=== PATIENT | female | born 1930 | race Caucasian/White ===

== ENCOUNTER 2017-06-10 06:29 | Inpatient (IN) | payer MEDICARE, OTHER ==
[~2017-06-10] VITALS: Ht 165.1 cm; Wt 76.4 kg
[~2017-06-10 06:29] MED LIST: AMIO200T57 PO; AMLO2.5T2 PO; APIX2.5T PO; CLON-529 PO; ENOX40SY7 SUBCUT; FERR134T2 PO; MULT-785 PO; NITR0.4T PO; PRAV80TA3 PO; SYN0.088T PO; UBID200C37 PO; rocuronium 10mg/ml inj IV ONE
[2017-06-10 07:36] LABS: BASOPHILS % (AUTO) 0 % (0-1); EOSINOPHILS # (AUTO) 0.1 X10'3 (0-0.9); EOSINOPHILS % (AUTO) 1.7 % (0-6); HEMATOCRIT 25.3 % (35.0-45.0); HEMOGLOBIN 8.4 g/dl (12.0-16.0); LYMPHOCYTES # (AUTO) 0.7 X10'3 (1.1-4.8); LYMPHOCYTES % (AUTO) 9.5 % (21-51); MEAN CORPUSCULAR HEMOGLOBIN 32.3 PG (27.0-31.0); MEAN CORPUSCULAR HGB CONC 33.1 % (33.0-36.5); MEAN CORPUSCULAR VOLUME 97.4 FL (78-98); MEAN PLATELET VOLUME 7.2 FL (7.4-10.4); MONOCYTES # (AUTO) 0.8 X10'3 (0-0.9); MONOCYTES % (AUTO) 9.9 % (2-12); NEUTROPHILS # (AUTO) 6.2 X10'3 (1.8-7.7); NEUTROPHILS % (AUTO) 78.9 % (42-75); PLATELET COUNT 251 X10'3 (140-440); RED BLOOD COUNT 2.59 X10'6 (4.20-5.60); RED CELL DISTRIBUTION WIDTH 15.3 % (11.5-14.5); WHITE BLOOD COUNT 7.8 X10'3 (4.5-11.0)
[2017-06-10 07:59] LABS: ALANINE AMINOTRANSFERASE 25 U/L (12-78); ALBUMIN 3.1 G/DL (3.4-5.0); ALBUMIN/GLOBULIN RATIO 0.8 (1.1-1.5); ALKALINE PHOSPHATASE 77 IU/L (46-116); ANION GAP 3 (8-16); ASPARTATE AMINO TRANSFERASE 15 U/L (10-37); BILIRUBIN,TOTAL 0.5 MG/DL (0.1-1.0); BLOOD UREA NITROGEN 25 MG/DL (7-18); BUN/CREATININE RATIO 25.8 (6.6-38.0); CALCIUM 8.8 MG/DL (8.5-10.1); CHLORIDE 104 MMOL/L (99-107); CREATININE 0.97 MG/DL (0.40-0.90); GLUCOSE 105 MG/DL (70-104); POTASSIUM 4.5 MMOL/L (3.5-5.1); SODIUM 147 MMOL/L (135-145); TOTAL PROTEIN 6.8 G/DL (6.4-8.2); eGFR 54 ML/MIN
[2017-06-10 08:00] LABS: TOTAL CARBON DIOXIDE 40.3 MMOL/L (24-32)
[2017-06-10 08:11] LABS: ABG BASE EXCESS 11.7 mmol/L (-2.0-3.0); ABG HCO3 39.8 mmol/L (22.0-26.0); ABG OXYGEN SATURATION 59.4 % (95-98); ABG PCO2 (T) 81.7 mmHg (32.0-45.0); ABG PH (T) 7.305 (7.350-7.450); ABG PO2 (T) 32.4 mmHg (83-108); ALLEN'S TEST Positive; FCOHb 1.4 % (0.5-1.5); FLOW 4 L/min; FO2Hb 58.6 % (94-100); RESPIRATORY RATE 18 b/min; TOTAL HEMOGLOBIN 7.8 G/dl (12.0-16.0)
[2017-06-10] MEDS ORDERED: aspirin 300mg supp.rect RC ONE (09:00)
[2017-06-10] MEDS ORDERED: heparin 10,000 units/1 ML INJ IV ONE ×2 (09:00→09:30)
[2017-06-10 09:20] LABS: ABG HCO3 42.8 mmol/L (22.0-26.0); ABG OXYGEN SATURATION 98.4 % (95-98); ABG PCO2 (T) 91.4 mmHg (32.0-45.0); ABG PH (T) 7.288 (7.350-7.450); ABG PO2 (T) 141.5 mmHg (83-108); ALLEN'S TEST Positive; FCOHb 1.3 % (0.5-1.5); FMetHb 0.3 % (0.3-1.12); FO2Hb 96.8 % (94-100); MINUTE VOLUME 12 L/min; RESPIRATORY RATE 18 b/min; RESPIRATORY RATE (OBSERVED) 23 b/min; TOTAL HEMOGLOBIN 8.1 G/dl (12.0-16.0)
[2017-06-10] MEDS ORDERED: rocuronium 10mg/ml inj IV ONE (09:25)
[2017-06-10] MEDS ORDERED: etomidate 2mg/ml inj. IV ONE (09:25)
[2017-06-10] MEDS ORDERED: propofol 1000mg/100ml bottle 100 ML IV ONE (09:25)
[2017-06-10] MEDS ORDERED: fentaNYL/PF 50MCG/1 ML 2ML syringe IV ONE (09:25)
[2017-06-10] MEDS ORDERED: MIDAZolam 5mg/ml 2ml vial IV ONE (09:25)
[2017-06-10 10:30] LABS: ABG BASE EXCESS 14.4 mmol/L (-2.0-3.0); ABG HCO3 42.3 mmol/L (22.0-26.0); ABG OXYGEN SATURATION 92.4 % (95-98); ABG PH (T) 7.341 (7.350-7.450); ABG PO2 (T) 65.4 mmHg (83-108); ALLEN'S TEST Positive; FMetHb 0.3 % (0.3-1.12); FO2Hb 91.2 % (94-100); MINUTE VOLUME 9 L/min; RESPIRATORY RATE 22 b/min; RESPIRATORY RATE (OBSERVED) 23 b/min; TOTAL HEMOGLOBIN 8.5 G/dl (12.0-16.0)
[2017-06-10 11:11] LABS: ABG BASE EXCESS 12.8 mmol/L (-2.0-3.0); ABG HCO3 40.1 mmol/L (22.0-26.0); ABG OXYGEN SATURATION 92.7 % (95-98); ABG PCO2 (T) 74.2 mmHg (32.0-45.0); ABG PH (T) 7.351 (7.350-7.450); ABG PO2 (T) 66.5 mmHg (83-108); ALLEN'S TEST Positive; FCOHb 1.1 % (0.5-1.5); FMetHb 0.3 % (0.3-1.12); FO2Hb 91.4 % (94-100); MINUTE VOLUME 10 L/min; RESPIRATORY RATE 25 b/min; RESPIRATORY RATE (OBSERVED) 25 b/min
[2017-06-10 12:27] LABS: PARTIAL THROMBOPLASTIN TIME 36 SECONDS (22-32); PROTHROMBIN TIME 10.2 SECONDS (9.0-12.0)
[2017-06-10 12:51] LABS: ABG OXYGEN SATURATION 96.8 % (95-98); ABG PCO2 (T) 69.9 mmHg (32.0-45.0); ABG PH (T) 7.375 (7.350-7.450); ABG PO2 (T) 93.4 mmHg (83-108); ALLEN'S TEST Positive; FCOHb 1.3 % (0.5-1.5); FMetHb 0.3 % (0.3-1.12); FO2Hb 95.3 % (94-100); MINUTE VOLUME 12 L/min; RESPIRATORY RATE 25 b/min; RESPIRATORY RATE (OBSERVED) 29 b/min
[2017-06-10] MEDS ORDERED: dextrose 5%-1/2 normal saline 1,000 ML IV SCH (14:07)
[2017-06-10] MEDS ORDERED: mag hydrox/Alum hydrox/simeth 30ml oral suspension PO PRN (14:10)
[2017-06-10] MEDS ORDERED: acetaminophen 325mg tablet PO PRN (14:10)
[2017-06-10] MEDS ORDERED: morphine 2 MG/ML inj. syringe IV PRN (14:10)
[2017-06-10] MEDS ORDERED: enoxaparin 100mg/ml syringe SUBCUT ONE (15:10)
[2017-06-10] MEDS: hydrALAZINE 20mg/ml inj. IV PRN (18:07)
[2017-06-10 19:00] VITALS: BP 182/52
[2017-06-10] MEDS: ipratropium 0.5 MG/2.5ML nebule IH SCH ×3 (19:19→23:00)
[2017-06-10] MEDS: ondansetron/PF 4mg/2ml inj IV PRN (19:53)
[2017-06-10] MEDS: morphine 2 MG/ML inj. syringe IV PRN (19:58)
[2017-06-10] MEDS ORDERED: enoxaparin 100mg/ml syringe SUBCUT SCH (20:00)
[2017-06-10] MEDS ORDERED: apixaban 2.5mg tablet PO SCH (20:00)
[2017-06-10 20:13] LABS: ALANINE AMINOTRANSFERASE 25 U/L (12-78); ALBUMIN 2.8 G/DL (3.4-5.0); ALBUMIN/GLOBULIN RATIO 0.8 (1.1-1.5); ALKALINE PHOSPHATASE 75 IU/L (46-116); ASPARTATE AMINO TRANSFERASE 18 U/L (10-37); BILIRUBIN,DIRECT 0.1 MG/DL (0-0.3); BILIRUBIN,TOTAL 0.6 MG/DL (0.1-1.0); TOTAL PROTEIN 6.3 G/DL (6.4-8.2)
[2017-06-10 21:00] VITALS: BP 136/40
[2017-06-10 21:05] LABS: ABG BASE EXCESS 11.8 mmol/L (-2.0-3.0); ABG HCO3 38.5 mmol/L (22.0-26.0); ABG OXYGEN SATURATION 92.3 % (95-98); ABG PCO2 (T) 67.9 mmHg (32.0-45.0); ABG PH (T) 7.371 (7.350-7.450); ABG PO2 (T) 66.3 mmHg (83-108); ALLEN'S TEST Positive; FCOHb 0.5 % (0.5-1.5); FMetHb 0.3 % (0.3-1.12); FO2Hb 91.6 % (94-100); MINUTE VOLUME 12 L/min; PATIENT TEMPERATURE 36.9; RESPIRATORY RATE 25 b/min; RESPIRATORY RATE (OBSERVED) 28 b/min; TIDAL VOLUME 435 mL; TOTAL HEMOGLOBIN 7.6 G/dl (12.0-16.0)
[2017-06-10 23:00] VITALS: BP 158/49
[2017-06-10] MEDS: clindamycin phosphate inj 300 MG in dextrose 5%-water 50ml 48 ML IV SCH (23:32)
[2017-06-11] VITALS (14 sets, daily range): BP systolic 91–166; BP diastolic 39–82
[2017-06-11] MEDS: ipratropium 0.5 MG/2.5ML nebule IH SCH ×6 (03:02→23:16)
[2017-06-11] MEDS: clindamycin phosphate inj 300 MG in dextrose 5%-water 50ml 48 ML IV SCH ×4 (03:15→19:43)
[2017-06-11] MEDS: hydrALAZINE 20mg/ml inj. IV PRN ×2 (03:45→09:26)
[2017-06-11] MEDS: ondansetron/PF 4mg/2ml inj IV PRN ×2 (03:45→19:42)
[2017-06-11] MEDS: morphine 2 MG/ML inj. syringe IV PRN ×3 (03:46→19:42)
[2017-06-11 06:33] LABS: BASOPHILS % (AUTO) 0.2 % (0-1); EOSINOPHILS # (AUTO) 0.1 X10'3 (0-0.9); EOSINOPHILS % (AUTO) 1.1 % (0-6); HEMATOCRIT 24.1 % (35.0-45.0); LYMPHOCYTES # (AUTO) 0.6 X10'3 (1.1-4.8); LYMPHOCYTES % (AUTO) 11.4 % (21-51); MEAN CORPUSCULAR HEMOGLOBIN 32.6 PG (27.0-31.0); MEAN CORPUSCULAR HGB CONC 33.3 % (33.0-36.5); MEAN CORPUSCULAR VOLUME 97.9 FL (78-98); MEAN PLATELET VOLUME 7.4 FL (7.4-10.4); MONOCYTES # (AUTO) 0.6 X10'3 (0-0.9); MONOCYTES % (AUTO) 10.5 % (2-12); NEUTROPHILS # (AUTO) 4.2 X10'3 (1.8-7.7); NEUTROPHILS % (AUTO) 76.8 % (42-75); PLATELET COUNT 252 X10'3 (140-440); RED BLOOD COUNT 2.46 X10'6 (4.20-5.60); RED CELL DISTRIBUTION WIDTH 15.4 % (11.5-14.5); WHITE BLOOD COUNT 5.5 X10'3 (4.5-11.0)
[2017-06-11 06:54] LABS: ALBUMIN 2.7 G/DL (3.4-5.0); ANION GAP 3 (8-16); BLOOD UREA NITROGEN 23 MG/DL (7-18); CALCIUM 8.5 MG/DL (8.5-10.1); CHLORIDE 103 MMOL/L (99-107); CREATININE 0.96 MG/DL (0.40-0.90); GLUCOSE 93 MG/DL (70-104); POTASSIUM 4.6 MMOL/L (3.5-5.1); SODIUM 147 MMOL/L (135-145); eGFR 55 ML/MIN
[2017-06-11] MEDS ORDERED: acetaZOLAMIDE IV 500mg inj IV ONE (07:35)
[2017-06-11] MEDS ORDERED: amiodarone 200mg tablet PO SCH (08:00)
[2017-06-11] MEDS ORDERED: non-formulary drug (Ubidecarenone (Co Q10) 200 MG) PO SCH (08:00)
[2017-06-11] MEDS ORDERED: levoTHYROXINE 88mcg tablet PO SCH (08:00)
[2017-06-11] MEDS: levoTHYROXINE sod inj. 100mcg/5 ml vial IV SCH (09:10)
[2017-06-11] MEDS: cloNIDine 0.1 mg tablet PO SCH (09:11)
[2017-06-11] MEDS: atorvastatin 20mg tablet PO SCH (09:11)
[2017-06-11] MEDS: multivitamins, therapeutics tablet PO SCH (09:11)
[2017-06-11] MEDS: enoxaparin 30mg/0.3ml syringe SUBCUT SCH ×2 (09:12→19:44)
[2017-06-11] MEDS: enoxaparin 40mg/0.4ml syringe SUBCUT SCH ×2 (09:22→19:44)
[2017-06-11 10:51] LABS: ABG BASE EXCESS 15.4 mmol/L (-2.0-3.0); ABG HCO3 43.3 mmol/L (22.0-26.0); ABG OXYGEN SATURATION 93.2 % (95-98); ABG PCO2 (T) 81.1 mmHg (32.0-45.0); ABG PH (T) 7.345 (7.350-7.450); ABG PO2 (T) 70.9 mmHg (83-108); ALLEN'S TEST Positive; FCOHb 0.4 % (0.5-1.5); FLOW 5 L/min; FMetHb 0.3 % (0.3-1.12); FO2Hb 92.5 % (94-100); TOTAL HEMOGLOBIN 8.1 G/dl (12.0-16.0)
[2017-06-11] MEDS: lactobacillus rhamnosus 10,000 MMU CELLS/CAPSULE PO SCH (17:30)
[2017-06-12] VITALS (7 sets, daily range): BP systolic 116–158; BP diastolic 41–83
[2017-06-12] MEDS: ondansetron/PF 4mg/2ml inj IV PRN (00:13)
[2017-06-12] MEDS: morphine 2 MG/ML inj. syringe IV PRN (00:13)
[2017-06-12] MEDS: ipratropium 0.5 MG/2.5ML nebule IH SCH ×6 (03:04→23:35)
[2017-06-12] MEDS: clindamycin phosphate inj 300 MG in dextrose 5%-water 50ml 48 ML IV SCH ×4 (03:25→20:23)
[2017-06-12] MEDS: hydrALAZINE 20mg/ml inj. IV PRN (04:12)
[2017-06-12 05:46] LABS: BASOPHILS % (AUTO) 0.4 % (0-1); EOSINOPHILS # (AUTO) 0.1 X10'3 (0-0.9); EOSINOPHILS % (AUTO) 1.2 % (0-6); HEMATOCRIT 23.6 % (35.0-45.0); HEMOGLOBIN 7.8 g/dl (12.0-16.0); LYMPHOCYTES # (AUTO) 0.7 X10'3 (1.1-4.8); LYMPHOCYTES % (AUTO) 12.7 % (21-51); MEAN CORPUSCULAR HGB CONC 32.9 % (33.0-36.5); MEAN CORPUSCULAR VOLUME 97.2 FL (78-98); MEAN PLATELET VOLUME 7.4 FL (7.4-10.4); MONOCYTES # (AUTO) 0.6 X10'3 (0-0.9); MONOCYTES % (AUTO) 11.4 % (2-12); NEUTROPHILS # (AUTO) 3.8 X10'3 (1.8-7.7); NEUTROPHILS % (AUTO) 74.3 % (42-75); PLATELET COUNT 257 X10'3 (140-440); RED BLOOD COUNT 2.43 X10'6 (4.20-5.60); RED CELL DISTRIBUTION WIDTH 15.5 % (11.5-14.5); WHITE BLOOD COUNT 5.2 X10'3 (4.5-11.0)
[2017-06-12 05:59] LABS: ALBUMIN 2.6 G/DL (3.4-5.0); ANION GAP 5 (8-16); BLOOD UREA NITROGEN 22 MG/DL (7-18); BUN/CREATININE RATIO 21.6 (6.6-38.0); CALCIUM 8.5 MG/DL (8.5-10.1); CHLORIDE 104 MMOL/L (99-107); CREATININE 1.02 MG/DL (0.40-0.90); GLUCOSE 84 MG/DL (70-104); POTASSIUM 3.9 MMOL/L (3.5-5.1); SODIUM 145 MMOL/L (135-145); TOTAL CARBON DIOXIDE 36.5 MMOL/L (24-32); eGFR 51 ML/MIN
[2017-06-12] MEDS: cloNIDine 0.1 mg tablet PO SCH (08:11)
[2017-06-12] MEDS: atorvastatin 20mg tablet PO SCH (08:11)
[2017-06-12] MEDS: enoxaparin 30mg/0.3ml syringe SUBCUT SCH ×2 (08:11→20:23)
[2017-06-12] MEDS: lactobacillus rhamnosus 10,000 MMU CELLS/CAPSULE PO SCH ×2 (08:11→17:41)
[2017-06-12] MEDS: multivitamins, therapeutics tablet PO SCH (08:11)
[2017-06-12] MEDS: methylPREDNISolone sod succ/PF 40mg inj. IV SCH ×3 (08:12→20:23)
[2017-06-12] MEDS: levoTHYROXINE sod inj. 100mcg/5 ml vial IV SCH (08:12)
[2017-06-12] MEDS: furosemide 20 MG/2 ML vial IV SCH ×2 (08:12→20:23)
[2017-06-12] MEDS: enoxaparin 40mg/0.4ml syringe SUBCUT SCH ×2 (08:12→20:22)
[2017-06-12 08:35] LABS: ABG BASE EXCESS 6.2 mmol/L (-2.0-3.0); ABG HCO3 32.3 mmol/L (22.0-26.0); ABG OXYGEN SATURATION 93.2 % (95-98); ABG PCO2 (T) 56.5 mmHg (32.0-45.0); ABG PH (T) 7.375 (7.350-7.450); ABG PO2 (T) 69.1 mmHg (83-108); ALLEN'S TEST Positive; FCOHb 0.6 % (0.5-1.5); FMetHb 0.3 % (0.3-1.12); FO2Hb 92.4 % (94-100); RESPIRATORY RATE 25 b/min; TOTAL HEMOGLOBIN 8.5 G/dl (12.0-16.0)
[2017-06-12] MEDS ORDERED: pantoprazole 40 MG vial IV SCH (20:00)
[2017-06-13] MEDS: methylPREDNISolone sod succ/PF 40mg inj. IV SCH ×4 (01:49→20:00)
[2017-06-13] MEDS: clindamycin phosphate inj 300 MG in dextrose 5%-water 50ml 48 ML IV SCH ×4 (01:49→21:29)
[2017-06-13 03:00] VITALS: BP 158/47
[2017-06-13] MEDS: ipratropium 0.5 MG/2.5ML nebule IH SCH ×6 (03:09→23:18)
[2017-06-13 05:53] LABS: BASOPHILS % (AUTO) 0 % (0-1); EOSINOPHILS # (AUTO) 0.1 X10'3 (0-0.9); HEMATOCRIT 22.8 % (35.0-45.0); HEMOGLOBIN 7.7 g/dl (12.0-16.0); LYMPHOCYTES # (AUTO) 0.3 X10'3 (1.1-4.8); LYMPHOCYTES % (AUTO) 3.1 % (21-51); MEAN CORPUSCULAR HEMOGLOBIN 32.3 PG (27.0-31.0); MEAN CORPUSCULAR HGB CONC 33.9 % (33.0-36.5); MEAN CORPUSCULAR VOLUME 95.3 FL (78-98); MEAN PLATELET VOLUME 7.4 FL (7.4-10.4); MONOCYTES # (AUTO) 0.2 X10'3 (0-0.9); MONOCYTES % (AUTO) 2.1 % (2-12); NEUTROPHILS % (AUTO) 93.8 % (42-75); PLATELET COUNT 266 X10'3 (140-440); RED BLOOD COUNT 2.39 X10'6 (4.20-5.60); WHITE BLOOD COUNT 8.5 X10'3 (4.5-11.0)
[2017-06-13 06:00] VITALS: BP 171/47
[2017-06-13 06:05] LABS: ALBUMIN 2.6 G/DL (3.4-5.0); ANION GAP 5 (8-16); BLOOD UREA NITROGEN 30 MG/DL (7-18); BUN/CREATININE RATIO 23.1 (6.6-38.0); CALCIUM 8.5 MG/DL (8.5-10.1); CHLORIDE 103 MMOL/L (99-107); GLUCOSE 128 MG/DL (70-104); POTASSIUM 3.9 MMOL/L (3.5-5.1); SODIUM 144 MMOL/L (135-145); TOTAL CARBON DIOXIDE 35.9 MMOL/L (24-32); eGFR 39 ML/MIN
[2017-06-13] MEDS: enoxaparin 30mg/0.3ml syringe SUBCUT SCH ×2 (07:57→20:00)
[2017-06-13] MEDS: enoxaparin 40mg/0.4ml syringe SUBCUT SCH ×2 (07:57→21:26)
[2017-06-13] MEDS: levoTHYROXINE sod inj. 100mcg/5 ml vial IV SCH (08:01)
[2017-06-13] MEDS: furosemide 20 MG/2 ML vial IV SCH (08:07)
[2017-06-13] MEDS: multivitamins, therapeutics tablet PO SCH (08:11)
[2017-06-13] MEDS: cloNIDine 0.1 mg tablet PO SCH (08:12)
[2017-06-13] MEDS: lactobacillus rhamnosus 10,000 MMU CELLS/CAPSULE PO SCH ×2 (08:12→21:25)
[2017-06-13] MEDS: pantoprazole 40mg Tablet.DR PO SCH ×2 (08:12→21:26)
[2017-06-13] MEDS: atorvastatin 20mg tablet PO SCH (08:12)
[2017-06-13 11:00] VITALS: BP 144/43
[2017-06-13 15:00] VITALS: BP 138/46
[2017-06-13] MEDS: magnesium hydroxide 30ml (MOM) UD suspension PO PRN (15:52)
[2017-06-13 19:00] VITALS: BP 168/57
[2017-06-13] MEDS ORDERED: methylPREDNISolone sod succ 125mg/2ml vial ONE (21:20)
[2017-06-13 23:00] VITALS: BP 143/49
[2017-06-14] VITALS (19 sets, daily range): BP systolic 108–183; BP diastolic 49–89
[2017-06-14] MEDS: clindamycin phosphate inj 300 MG in dextrose 5%-water 50ml 48 ML IV SCH ×4 (01:43→20:30)
[2017-06-14] MEDS: methylPREDNISolone sod succ/PF 40mg inj. IV SCH ×4 (01:43→20:30)
[2017-06-14] MEDS: ipratropium 0.5 MG/2.5ML nebule IH SCH ×6 (02:29→23:40)
[2017-06-14 05:57] LABS: BASOPHILS % (AUTO) 0 % (0-1); EOSINOPHILS # (AUTO) 0.1 X10'3 (0-0.9); HEMOGLOBIN 7.8 g/dl (12.0-16.0); LYMPHOCYTES # (AUTO) 0.4 X10'3 (1.1-4.8); LYMPHOCYTES % (AUTO) 2.6 % (21-51); MEAN CORPUSCULAR HEMOGLOBIN 32.4 PG (27.0-31.0); MEAN CORPUSCULAR HGB CONC 33.7 % (33.0-36.5); MEAN CORPUSCULAR VOLUME 96.3 FL (78-98); MEAN PLATELET VOLUME 7.8 FL (7.4-10.4); MONOCYTES # (AUTO) 0.4 X10'3 (0-0.9); NEUTROPHILS # (AUTO) 13.5 X10'3 (1.8-7.7); NEUTROPHILS % (AUTO) 93.4 % (42-75); PLATELET COUNT 260 X10'3 (140-440); RED BLOOD COUNT 2.39 X10'6 (4.20-5.60); RED CELL DISTRIBUTION WIDTH 15.5 % (11.5-14.5); WHITE BLOOD COUNT 14.4 X10'3 (4.5-11.0)
[2017-06-14 05:58] LABS: ALBUMIN 2.6 G/DL (3.4-5.0); ANION GAP 2 (8-16); BLOOD UREA NITROGEN 34 MG/DL (7-18); BUN/CREATININE RATIO 25.4 (6.6-38.0); CALCIUM 8.5 MG/DL (8.5-10.1); CHLORIDE 103 MMOL/L (99-107); CREATININE 1.34 MG/DL (0.40-0.90); GLUCOSE 142 MG/DL (70-104); POTASSIUM 4.6 MMOL/L (3.5-5.1); SODIUM 143 MMOL/L (135-145); eGFR 38 ML/MIN
[2017-06-14] MEDS: enoxaparin 40mg/0.4ml syringe SUBCUT SCH ×2 (08:34→20:31)
[2017-06-14] MEDS: enoxaparin 30mg/0.3ml syringe SUBCUT SCH ×2 (08:34→20:30)
[2017-06-14] MEDS: levoTHYROXINE sod inj. 100mcg/5 ml vial IV SCH (08:41)
[2017-06-14] MEDS: lactobacillus rhamnosus 10,000 MMU CELLS/CAPSULE PO SCH ×2 (08:44→17:04)
[2017-06-14] MEDS: multivitamins, therapeutics tablet PO SCH (08:44)
[2017-06-14] MEDS: cloNIDine 0.1 mg tablet PO SCH (08:44)
[2017-06-14] MEDS: atorvastatin 20mg tablet PO SCH (08:44)
[2017-06-14] MEDS: pantoprazole 40mg Tablet.DR PO SCH ×2 (08:45→20:30)
[2017-06-14] MEDS: hydrALAZINE 20mg/ml inj. IV PRN (16:13)
[2017-06-14] MEDS: carVEDilol 3.125mg tablet PO SCH (22:36)
[2017-06-15] VITALS (14 sets, daily range): BP systolic 128–187; BP diastolic 47–120
[2017-06-15] MEDS: methylPREDNISolone sod succ/PF 40mg inj. IV SCH ×4 (01:47→19:50)
[2017-06-15] MEDS: clindamycin phosphate inj 300 MG in dextrose 5%-water 50ml 48 ML IV SCH ×4 (01:47→19:50)
[2017-06-15] MEDS: ipratropium 0.5 MG/2.5ML nebule IH SCH ×6 (03:21→22:59)
[2017-06-15] MEDS: hydrALAZINE 20mg/ml inj. IV PRN ×2 (04:37→16:47)
[2017-06-15 05:30] LABS: BASOPHILS % (AUTO) 0 % (0-1); EOSINOPHILS # (AUTO) 0.2 X10'3 (0-0.9); EOSINOPHILS % (AUTO) 1.5 % (0-6); HEMATOCRIT 23.6 % (35.0-45.0); LYMPHOCYTES # (AUTO) 0.3 X10'3 (1.1-4.8); LYMPHOCYTES % (AUTO) 2.4 % (21-51); MEAN CORPUSCULAR HEMOGLOBIN 32.5 PG (27.0-31.0); MEAN CORPUSCULAR HGB CONC 33.8 % (33.0-36.5); MEAN PLATELET VOLUME 7.4 FL (7.4-10.4); MONOCYTES # (AUTO) 0.4 X10'3 (0-0.9); MONOCYTES % (AUTO) 3.1 % (2-12); NEUTROPHILS # (AUTO) 13.1 X10'3 (1.8-7.7); PLATELET COUNT 275 X10'3 (140-440); RED BLOOD COUNT 2.46 X10'6 (4.20-5.60); RED CELL DISTRIBUTION WIDTH 15.8 % (11.5-14.5); WHITE BLOOD COUNT 14.1 X10'3 (4.5-11.0)
[2017-06-15 05:42] LABS: ALBUMIN 2.7 G/DL (3.4-5.0); ANION GAP 0 (8-16); BLOOD UREA NITROGEN 34 MG/DL (7-18); CALCIUM 8.4 MG/DL (8.5-10.1); CHLORIDE 104 MMOL/L (99-107); CREATININE 1.26 MG/DL (0.40-0.90); GLUCOSE 130 MG/DL (70-104); POTASSIUM 4.9 MMOL/L (3.5-5.1); SODIUM 142 MMOL/L (135-145); TOTAL CARBON DIOXIDE 38.2 MMOL/L (24-32); eGFR 40 ML/MIN
[2017-06-15] MEDS: levoTHYROXINE sod inj. 100mcg/5 ml vial IV SCH (07:13)
[2017-06-15] MEDS: multivitamins, therapeutics tablet PO SCH (07:13)
[2017-06-15] MEDS: lactobacillus rhamnosus 10,000 MMU CELLS/CAPSULE PO SCH ×2 (07:13→16:46)
[2017-06-15] MEDS: cloNIDine 0.1 mg tablet PO SCH (07:13)
[2017-06-15] MEDS: atorvastatin 20mg tablet PO SCH (07:13)
[2017-06-15] MEDS: pantoprazole 40mg Tablet.DR PO SCH ×2 (07:13→19:50)
[2017-06-15] MEDS: carVEDilol 3.125mg tablet PO SCH ×2 (07:13→19:50)
[2017-06-15] MEDS: enoxaparin 30mg/0.3ml syringe SUBCUT SCH ×2 (07:14→19:50)
[2017-06-15] MEDS: enoxaparin 40mg/0.4ml syringe SUBCUT SCH ×2 (07:15→19:51)
[2017-06-15] MEDS: ondansetron/PF 4mg/2ml inj IV PRN (13:22)
[2017-06-15] MEDS ORDERED: simethicone 80mg chew tab PO PRN (16:20)
[2017-06-15 19:32] LABS: ABG BASE EXCESS 9.5 mmol/L (-2.0-3.0); ABG HCO3 36.9 mmol/L (22.0-26.0); ABG OXYGEN SATURATION 87.5 % (95-98); ABG PH (T) 7.328 (7.350-7.450); ABG PO2 (T) 59.1 mmHg (83-108); ALLEN'S TEST Positive; FCOHb 0.3 % (0.5-1.5); FLOW 6 L/min; FO2Hb 87.2 % (94-100); RESPIRATORY RATE (OBSERVED) 20 b/min; TOTAL HEMOGLOBIN 8.4 G/dl (12.0-16.0)
[2017-06-15] MEDS ORDERED: potassium Cl 20 mEq SR tablet PO PRN ×2 (19:45)
[2017-06-16] MEDS: clindamycin phosphate inj 300 MG in dextrose 5%-water 50ml 48 ML IV SCH ×4 (01:10→20:48)
[2017-06-16] MEDS: methylPREDNISolone sod succ/PF 40mg inj. IV SCH ×4 (01:10→20:48)
[2017-06-16 03:00] VITALS: BP 100/250
[2017-06-16] MEDS: ipratropium 0.5 MG/2.5ML nebule IH SCH ×4 (03:19→19:33)
[2017-06-16] MEDS: hydrALAZINE 20mg/ml inj. IV PRN ×2 (05:50→23:36)
[2017-06-16 05:59] LABS: BASOPHILS % (AUTO) 0 % (0-1); EOSINOPHILS # (AUTO) 0.1 X10'3 (0-0.9); HEMATOCRIT 22.5 % (35.0-45.0); HEMOGLOBIN 7.4 g/dl (12.0-16.0); LYMPHOCYTES # (AUTO) 0.3 X10'3 (1.1-4.8); LYMPHOCYTES % (AUTO) 2.7 % (21-51); MEAN CORPUSCULAR HEMOGLOBIN 32.1 PG (27.0-31.0); MEAN CORPUSCULAR VOLUME 97.3 FL (78-98); MEAN PLATELET VOLUME 7.5 FL (7.4-10.4); MONOCYTES # (AUTO) 0.5 X10'3 (0-0.9); MONOCYTES % (AUTO) 4.9 % (2-12); NEUTROPHILS # (AUTO) 9.7 X10'3 (1.8-7.7); NEUTROPHILS % (AUTO) 91.4 % (42-75); PLATELET COUNT 241 X10'3 (140-440); RED BLOOD COUNT 2.32 X10'6 (4.20-5.60); RED CELL DISTRIBUTION WIDTH 15.7 % (11.5-14.5); WHITE BLOOD COUNT 10.6 X10'3 (4.5-11.0)
[2017-06-16 06:30] LABS: ALBUMIN 2.5 G/DL (3.4-5.0); ANION GAP 2 (8-16); BLOOD UREA NITROGEN 38 MG/DL (7-18); CALCIUM 8.2 MG/DL (8.5-10.1); CHLORIDE 104 MMOL/L (99-107); CREATININE 1.15 MG/DL (0.40-0.90); GLUCOSE 128 MG/DL (70-104); MAGNESIUM 2.5 MG/DL (1.5-2.4); POTASSIUM 4.7 MMOL/L (3.5-5.1); SODIUM 144 MMOL/L (135-145); TOTAL CARBON DIOXIDE 38.3 MMOL/L (24-32); eGFR 45 ML/MIN
[2017-06-16 07:00] VITALS: BP 141/51
[2017-06-16] MEDS: cloNIDine 0.1 mg tablet PO SCH (07:38)
[2017-06-16] MEDS: multivitamins, therapeutics tablet PO SCH (07:38)
[2017-06-16] MEDS: atorvastatin 20mg tablet PO SCH (07:38)
[2017-06-16] MEDS: levoTHYROXINE 25mcg tablet PO SCH (07:39)
[2017-06-16] MEDS: pantoprazole 40mg Tablet.DR PO SCH ×2 (07:39→20:49)
[2017-06-16] MEDS: lactobacillus rhamnosus 10,000 MMU CELLS/CAPSULE PO SCH ×2 (07:39→17:51)
[2017-06-16] MEDS: carVEDilol 3.125mg tablet PO SCH ×2 (07:39→20:49)
[2017-06-16] MEDS: enoxaparin 30mg/0.3ml syringe SUBCUT SCH ×2 (07:40→20:50)
[2017-06-16] MEDS: enoxaparin 40mg/0.4ml syringe SUBCUT SCH ×2 (07:41→20:50)
[2017-06-16 10:03] LABS: HEMATOCRIT 24.7 % (35.0-45.0); HEMOGLOBIN 8.2 g/dl (12.0-16.0); MEAN CORPUSCULAR HGB CONC 33.1 % (33.0-36.5); MEAN CORPUSCULAR VOLUME 96.7 FL (78-98); MEAN PLATELET VOLUME 7.4 FL (7.4-10.4); PLATELET COUNT 300 X10'3 (140-440); RED BLOOD COUNT 2.55 X10'6 (4.20-5.60); RED CELL DISTRIBUTION WIDTH 15.3 % (11.5-14.5)
[2017-06-16 11:00] VITALS: BP 167/53
[2017-06-16 19:00] VITALS: BP 135/52
[2017-06-16 21:00] VITALS: BP 142/48
[2017-06-16 23:00] VITALS: BP 162/53
[2017-06-17] VITALS (11 sets, daily range): BP systolic 138–172; BP diastolic 45–107
[2017-06-17] MEDS: methylPREDNISolone sod succ/PF 40mg inj. IV SCH ×4 (02:13→21:14)
[2017-06-17] MEDS: clindamycin phosphate inj 300 MG in dextrose 5%-water 50ml 48 ML IV SCH ×2 (02:13→08:44)
[2017-06-17] MEDS: ipratropium 0.5 MG/2.5ML nebule IH SCH ×4 (02:40→20:26)
[2017-06-17] MEDS: cloNIDine 0.1 mg tablet PO SCH ×4 (03:30→19:32)
[2017-06-17 06:36] LABS: BASOPHILS % (AUTO) 0 % (0-1); EOSINOPHILS # (AUTO) 0.1 X10'3 (0-0.9); EOSINOPHILS % (AUTO) 1.4 % (0-6); HEMOGLOBIN 7.1 g/dl (12.0-16.0); LYMPHOCYTES # (AUTO) 0.3 X10'3 (1.1-4.8); LYMPHOCYTES % (AUTO) 3.1 % (21-51); MEAN CORPUSCULAR HGB CONC 33.2 % (33.0-36.5); MEAN CORPUSCULAR VOLUME 96.3 FL (78-98); MEAN PLATELET VOLUME 7.7 FL (7.4-10.4); MONOCYTES # (AUTO) 0.5 X10'3 (0-0.9); NEUTROPHILS # (AUTO) 9.4 X10'3 (1.8-7.7); NEUTROPHILS % (AUTO) 90.5 % (42-75); PLATELET COUNT 231 X10'3 (140-440); RED CELL DISTRIBUTION WIDTH 15.7 % (11.5-14.5); WHITE BLOOD COUNT 10.4 X10'3 (4.5-11.0)
[2017-06-17 06:38] LABS: ALBUMIN 2.6 G/DL (3.4-5.0); ANION GAP 4 (8-16); BLOOD UREA NITROGEN 47 MG/DL (7-18); BUN/CREATININE RATIO 36.4 (6.6-38.0); CALCIUM 8.1 MG/DL (8.5-10.1); CHLORIDE 102 MMOL/L (99-107); CREATININE 1.29 MG/DL (0.40-0.90); GLUCOSE 139 MG/DL (70-104); MAGNESIUM 2.4 MG/DL (1.5-2.4); POTASSIUM 4.5 MMOL/L (3.5-5.1); SODIUM 143 MMOL/L (135-145); TOTAL CARBON DIOXIDE 37.5 MMOL/L (24-32); eGFR 39 ML/MIN
[2017-06-17 06:47] LABS: HEMATOCRIT 21.2 % (35.0-45.0)
[2017-06-17] MEDS ORDERED: levoFLOXACIN-Levaquin 500mg/D5 100 ML IV SCH (08:00)
[2017-06-17] MEDS: multivitamins, therapeutics tablet PO SCH (08:59)
[2017-06-17] MEDS: carVEDilol 3.125mg tablet PO SCH ×2 (08:59→19:33)
[2017-06-17] MEDS: atorvastatin 20mg tablet PO SCH (08:59)
[2017-06-17] MEDS: lactobacillus rhamnosus 10,000 MMU CELLS/CAPSULE PO SCH ×2 (08:59→17:30)
[2017-06-17] MEDS: enoxaparin 30mg/0.3ml syringe SUBCUT SCH (09:00)
[2017-06-17] MEDS: pantoprazole 40mg Tablet.DR PO SCH ×2 (09:00→19:32)
[2017-06-17] MEDS: enoxaparin 40mg/0.4ml syringe SUBCUT SCH (09:00)
[2017-06-17] MEDS: levoTHYROXINE 25mcg tablet PO SCH (09:00)
[2017-06-17 13:44] LABS: BASOPHILS % (AUTO) 0 % (0-1); EOSINOPHILS # (AUTO) 0.1 X10'3 (0-0.9); EOSINOPHILS % (AUTO) 1.1 % (0-6); HEMATOCRIT 23.2 % (35.0-45.0); HEMOGLOBIN 7.7 g/dl (12.0-16.0); LYMPHOCYTES # (AUTO) 0.3 X10'3 (1.1-4.8); LYMPHOCYTES % (AUTO) 2.5 % (21-51); MEAN CORPUSCULAR HEMOGLOBIN 32.1 PG (27.0-31.0); MEAN CORPUSCULAR HGB CONC 33.3 % (33.0-36.5); MEAN CORPUSCULAR VOLUME 96.3 FL (78-98); MEAN PLATELET VOLUME 8.1 FL (7.4-10.4); MONOCYTES # (AUTO) 0.5 X10'3 (0-0.9); MONOCYTES % (AUTO) 4.7 % (2-12); NEUTROPHILS # (AUTO) 10.2 X10'3 (1.8-7.7); NEUTROPHILS % (AUTO) 91.7 % (42-75); PLATELET COUNT 273 X10'3 (140-440); RED BLOOD COUNT 2.41 X10'6 (4.20-5.60); RED CELL DISTRIBUTION WIDTH 16.3 % (11.5-14.5); WHITE BLOOD COUNT 11.1 X10'3 (4.5-11.0)
[2017-06-17 13:54] LABS: PROTHROMBIN TIME 10.5 SECONDS (9.0-12.0)
[2017-06-17] MEDS: hydrALAZINE 20mg/ml inj. IV PRN (23:19)
[2017-06-18] VITALS (20 sets, daily range): BP systolic 129–182; BP diastolic 47–121
[2017-06-18] MEDS: methylPREDNISolone sod succ/PF 40mg inj. IV SCH ×4 (01:15→21:20)
[2017-06-18] MEDS: levoFLOXACIN-Levaquin 500mg/D5 100 ML IV SCH ×2 (01:16→09:35)
[2017-06-18] MEDS: ipratropium 0.5 MG/2.5ML nebule IH SCH ×4 (02:28→22:35)
[2017-06-18] MEDS: lactobacillus rhamnosus 10,000 MMU CELLS/CAPSULE PO SCH ×2 (07:30→16:42)
[2017-06-18] MEDS ORDERED: ADD VANTAGE IV SCH (08:00)
[2017-06-18] MEDS ORDERED: VANCOMYCIN IV SCH (08:00)
[2017-06-18] MEDS: multivitamins, therapeutics tablet PO SCH (08:00)
[2017-06-18] MEDS ORDERED: NS IV SCH (08:00)
[2017-06-18] MEDS: levoTHYROXINE 25mcg tablet PO SCH (08:35)
[2017-06-18] MEDS: carVEDilol 3.125mg tablet PO SCH ×2 (08:40→21:20)
[2017-06-18] MEDS: cloNIDine 0.1 mg tablet PO SCH ×3 (08:41→21:20)
[2017-06-18] MEDS: pantoprazole 40mg Tablet.DR PO SCH ×2 (08:43→21:20)
[2017-06-18] MEDS: atorvastatin 20mg tablet PO SCH (08:43)
[2017-06-18 08:48] LABS: BASOPHILS % (AUTO) 0 % (0-1); EOSINOPHILS % (AUTO) 0 % (0-6); HEMATOCRIT 28.1 % (35.0-45.0); HEMOGLOBIN 9.4 g/dl (12.0-16.0); LYMPHOCYTES # (AUTO) 0.3 X10'3 (1.1-4.8); LYMPHOCYTES % (AUTO) 2.7 % (21-51); MEAN CORPUSCULAR HEMOGLOBIN 31.6 PG (27.0-31.0); MEAN CORPUSCULAR HGB CONC 33.3 % (33.0-36.5); MEAN CORPUSCULAR VOLUME 94.9 FL (78-98); MEAN PLATELET VOLUME 8.3 FL (7.4-10.4); MONOCYTES # (AUTO) 0.6 X10'3 (0-0.9); MONOCYTES % (AUTO) 4.8 % (2-12); NEUTROPHILS # (AUTO) 11.3 X10'3 (1.8-7.7); NEUTROPHILS % (AUTO) 92.5 % (42-75); PLATELET COUNT 275 X10'3 (140-440); RED BLOOD COUNT 2.96 X10'6 (4.20-5.60); RED CELL DISTRIBUTION WIDTH 16.8 % (11.5-14.5); WHITE BLOOD COUNT 12.2 X10'3 (4.5-11.0)
[2017-06-18 08:50] LABS: ALBUMIN 2.9 G/DL (3.4-5.0); ANION GAP 3 (8-16); BLOOD UREA NITROGEN 42 MG/DL (7-18); BUN/CREATININE RATIO 34.1 (6.6-38.0); CALCIUM 8.2 MG/DL (8.5-10.1); CHLORIDE 104 MMOL/L (99-107); CREATININE 1.23 MG/DL (0.40-0.90); GLUCOSE 124 MG/DL (70-104); MAGNESIUM 2.4 MG/DL (1.5-2.4); POTASSIUM 4.8 MMOL/L (3.5-5.1); SODIUM 144 MMOL/L (135-145); TOTAL CARBON DIOXIDE 36.6 MMOL/L (24-32); eGFR 41 ML/MIN
[2017-06-18] MEDS ORDERED: vancomycin/NS 1 GM ADD-VANTAGE 250 ML IV SCH (09:31)
[2017-06-18] MEDS: hydrALAZINE 20mg/ml inj. IV PRN (10:38)
[2017-06-18] MEDS: vancomycin/NS 1 GM ADD-VANTAGE 250 ML IV SCH (10:59)
[2017-06-19] VITALS (8 sets, daily range): BP systolic 133–171; BP diastolic 48–53
[2017-06-19] MEDS: methylPREDNISolone sod succ/PF 40mg inj. IV SCH ×4 (02:57→20:23)
[2017-06-19] MEDS: ipratropium 0.5 MG/2.5ML nebule IH SCH ×4 (03:01→20:00)
[2017-06-19] MEDS: hydrALAZINE 20mg/ml inj. IV PRN ×3 (03:15→21:38)
[2017-06-19 06:27] LABS: BASOPHILS % (AUTO) 0 % (0-1); EOSINOPHILS # (AUTO) 0.1 X10'3 (0-0.9); EOSINOPHILS % (AUTO) 1.2 % (0-6); HEMOGLOBIN 8.1 g/dl (12.0-16.0); LYMPHOCYTES # (AUTO) 0.2 X10'3 (1.1-4.8); LYMPHOCYTES % (AUTO) 2.1 % (21-51); MEAN CORPUSCULAR HGB CONC 33.8 % (33.0-36.5); MEAN CORPUSCULAR VOLUME 94.8 FL (78-98); MEAN PLATELET VOLUME 7.8 FL (7.4-10.4); MONOCYTES # (AUTO) 0.5 X10'3 (0-0.9); MONOCYTES % (AUTO) 4.8 % (2-12); NEUTROPHILS # (AUTO) 9.3 X10'3 (1.8-7.7); NEUTROPHILS % (AUTO) 91.9 % (42-75); PLATELET COUNT 229 X10'3 (140-440); RED BLOOD COUNT 2.53 X10'6 (4.20-5.60); RED CELL DISTRIBUTION WIDTH 16.6 % (11.5-14.5); WHITE BLOOD COUNT 10.1 X10'3 (4.5-11.0)
[2017-06-19 06:54] LABS: ALBUMIN 2.6 G/DL (3.4-5.0); ANION GAP 3 (8-16); BLOOD UREA NITROGEN 40 MG/DL (7-18); BUN/CREATININE RATIO 37.7 (6.6-38.0); CALCIUM 8.1 MG/DL (8.5-10.1); CHLORIDE 106 MMOL/L (99-107); CREATININE 1.06 MG/DL (0.40-0.90); GLUCOSE 134 MG/DL (70-104); MAGNESIUM 2.3 MG/DL (1.5-2.4); POTASSIUM 4.7 MMOL/L (3.5-5.1); SODIUM 145 MMOL/L (135-145); TOTAL CARBON DIOXIDE 35.6 MMOL/L (24-32); eGFR 49 ML/MIN
[2017-06-19] MEDS: levoFLOXACIN-Levaquin 250mg/D5 50 ML IV SCH (09:12)
[2017-06-19] MEDS: carVEDilol 3.125mg tablet PO SCH ×2 (09:13→20:23)
[2017-06-19] MEDS: vancomycin/NS 1 GM ADD-VANTAGE 250 ML IV SCH (09:13)
[2017-06-19] MEDS: levoTHYROXINE 25mcg tablet PO SCH (09:13)
[2017-06-19] MEDS: atorvastatin 20mg tablet PO SCH (09:13)
[2017-06-19] MEDS: cloNIDine 0.1 mg tablet PO SCH ×3 (09:14→20:23)
[2017-06-19] MEDS: lactobacillus rhamnosus 10,000 MMU CELLS/CAPSULE PO SCH ×2 (09:14→19:27)
[2017-06-19] MEDS: pantoprazole 40mg Tablet.DR PO SCH ×2 (09:14→20:23)
[2017-06-19] MEDS: multivitamins, therapeutics tablet PO SCH (09:14)
[2017-06-20] VITALS (9 sets, daily range): BP systolic 125–184; BP diastolic 48–81
[2017-06-20] MEDS ORDERED: cloNIDine 0.1 mg tablet PO ONE (00:41)
[2017-06-20] MEDS: methylPREDNISolone sod succ/PF 40mg inj. IV SCH ×4 (02:11→21:08)
[2017-06-20] MEDS: ipratropium 0.5 MG/2.5ML nebule IH SCH ×4 (03:05→20:12)
[2017-06-20] MEDS: hydrALAZINE 20mg/ml inj. IV PRN ×2 (04:34→17:14)
[2017-06-20] MEDS: multivitamins, therapeutics tablet PO SCH (07:24)
[2017-06-20] MEDS: vancomycin/NS 1 GM ADD-VANTAGE 250 ML IV SCH (07:24)
[2017-06-20] MEDS: atorvastatin 20mg tablet PO SCH (07:24)
[2017-06-20] MEDS: levoFLOXACIN-Levaquin 250mg/D5 50 ML IV SCH (07:24)
[2017-06-20] MEDS: levoTHYROXINE 25mcg tablet PO SCH (07:24)
[2017-06-20] MEDS: lactobacillus rhamnosus 10,000 MMU CELLS/CAPSULE PO SCH ×2 (07:25→17:07)
[2017-06-20] MEDS: carVEDilol 3.125mg tablet PO SCH ×2 (07:25→21:07)
[2017-06-20] MEDS: pantoprazole 40mg Tablet.DR PO SCH ×2 (07:25→21:07)
[2017-06-20] MEDS: cloNIDine 0.1 mg tablet PO SCH ×3 (07:25→21:07)
[2017-06-20 09:04] LABS: BASOPHILS % (AUTO) 0 % (0-1); EOSINOPHILS # (AUTO) 0.1 X10'3 (0-0.9); EOSINOPHILS % (AUTO) 0.7 % (0-6); HEMATOCRIT 26.8 % (35.0-45.0); HEMOGLOBIN 8.9 g/dl (12.0-16.0); LYMPHOCYTES # (AUTO) 0.2 X10'3 (1.1-4.8); MEAN CORPUSCULAR HEMOGLOBIN 31.7 PG (27.0-31.0); MEAN CORPUSCULAR HGB CONC 33.1 % (33.0-36.5); MEAN CORPUSCULAR VOLUME 95.7 FL (78-98); MEAN PLATELET VOLUME 7.7 FL (7.4-10.4); MONOCYTES # (AUTO) 0.4 X10'3 (0-0.9); MONOCYTES % (AUTO) 3.3 % (2-12); NEUTROPHILS # (AUTO) 10.7 X10'3 (1.8-7.7); PLATELET COUNT 240 X10'3 (140-440); RED BLOOD COUNT 2.81 X10'6 (4.20-5.60); RED CELL DISTRIBUTION WIDTH 16.6 % (11.5-14.5); WHITE BLOOD COUNT 11.4 X10'3 (4.5-11.0)
[2017-06-20 09:25] LABS: ALBUMIN 2.7 G/DL (3.4-5.0); ANION GAP 5 (8-16); BLOOD UREA NITROGEN 40 MG/DL (7-18); BUN/CREATININE RATIO 35.1 (6.6-38.0); CALCIUM 8.1 MG/DL (8.5-10.1); CHLORIDE 103 MMOL/L (99-107); CREATININE 1.14 MG/DL (0.40-0.90); GLUCOSE 209 MG/DL (70-104); MAGNESIUM 2.1 MG/DL (1.5-2.4); POTASSIUM 4.5 MMOL/L (3.5-5.1); SODIUM 142 MMOL/L (135-145); TOTAL CARBON DIOXIDE 34.5 MMOL/L (24-32); eGFR 45 ML/MIN
[2017-06-20] MEDS: Protein Shake (high protein) 240ml (8oz) cup PO SCH (18:35)
[2017-06-20] MEDS: magnesium hydroxide 30ml (MOM) UD suspension PO PRN (21:09)
[2017-06-20] MEDS ORDERED: cloNIDine 0.2 MG/24 HR patch (7 day patch) TD ONE (21:45)
[2017-06-21] MEDS: methylPREDNISolone sod succ/PF 40mg inj. IV SCH ×4 (02:05→19:40)
[2017-06-21] MEDS: ipratropium 0.5 MG/2.5ML nebule IH SCH ×4 (02:42→20:14)
[2017-06-21 03:00] VITALS: BP 178/64
[2017-06-21] MEDS: hydrALAZINE 20mg/ml inj. IV PRN ×3 (03:42→22:53)
[2017-06-21 05:46] LABS: BASOPHILS % (AUTO) 0 % (0-1); EOSINOPHILS # (AUTO) 0.2 X10'3 (0-0.9); EOSINOPHILS % (AUTO) 1.5 % (0-6); HEMATOCRIT 25.5 % (35.0-45.0); HEMOGLOBIN 8.4 g/dl (12.0-16.0); LYMPHOCYTES # (AUTO) 0.3 X10'3 (1.1-4.8); MEAN CORPUSCULAR HEMOGLOBIN 31.6 PG (27.0-31.0); MEAN CORPUSCULAR HGB CONC 33.1 % (33.0-36.5); MEAN CORPUSCULAR VOLUME 95.5 FL (78-98); MEAN PLATELET VOLUME 7.9 FL (7.4-10.4); MONOCYTES # (AUTO) 0.5 X10'3 (0-0.9); MONOCYTES % (AUTO) 4.1 % (2-12); NEUTROPHILS # (AUTO) 11.9 X10'3 (1.8-7.7); NEUTROPHILS % (AUTO) 92.4 % (42-75); PLATELET COUNT 223 X10'3 (140-440); RED BLOOD COUNT 2.68 X10'6 (4.20-5.60); RED CELL DISTRIBUTION WIDTH 16.1 % (11.5-14.5); WHITE BLOOD COUNT 12.8 X10'3 (4.5-11.0)
[2017-06-21 05:55] LABS: ALBUMIN 2.6 G/DL (3.4-5.0); ANION GAP 1 (8-16); BLOOD UREA NITROGEN 42 MG/DL (7-18); CHLORIDE 105 MMOL/L (99-107); CREATININE 1.05 MG/DL (0.40-0.90); GLUCOSE 149 MG/DL (70-104); MAGNESIUM 2.4 MG/DL (1.5-2.4); POTASSIUM 5.1 MMOL/L (3.5-5.1); SODIUM 140 MMOL/L (135-145); TOTAL CARBON DIOXIDE 33.7 MMOL/L (24-32); eGFR 50 ML/MIN
[2017-06-21 06:00] VITALS: BP 185/66
[2017-06-21] MEDS ORDERED: VANCOMYCIN LEVEL IV ONE (07:30)
[2017-06-21] MEDS: Protein Shake (high protein) 240ml (8oz) cup PO SCH ×3 (08:00→18:00)
[2017-06-21] MEDS: levoTHYROXINE 25mcg tablet PO SCH (09:17)
[2017-06-21] MEDS: lactobacillus rhamnosus 10,000 MMU CELLS/CAPSULE PO SCH ×2 (09:18→17:33)
[2017-06-21] MEDS: carVEDilol 3.125mg tablet PO SCH ×2 (09:19→19:39)
[2017-06-21] MEDS: atorvastatin 20mg tablet PO SCH (09:20)
[2017-06-21] MEDS: pantoprazole 40mg Tablet.DR PO SCH ×2 (09:20→19:39)
[2017-06-21] MEDS: multivitamins, therapeutics tablet PO SCH (09:20)
[2017-06-21] MEDS ORDERED: normal saline 1000ml 1,000 ML IV ONE (10:15)
[2017-06-21] MEDS ORDERED: iohexol 350MG/ML 100ml bottle IV ONE (10:40)
[2017-06-21 11:00] VITALS: BP 161/54
[2017-06-21 15:00] VITALS: BP 176/68
[2017-06-21 19:00] VITALS: BP 181/68
[2017-06-21] MEDS ORDERED: hyDRALAzine 10mg tablet PO ONE (19:30)
[2017-06-21 23:00] VITALS: BP 190/67
[2017-06-22] VITALS (9 sets, daily range): BP systolic 129–187; BP diastolic 52–68
[2017-06-22] MEDS: methylPREDNISolone sod succ/PF 40mg inj. IV SCH ×4 (01:53→21:05)
[2017-06-22] MEDS: cloNIDine 0.1 mg tablet PO SCH ×4 (02:08→21:04)
[2017-06-22] MEDS: ipratropium 0.5 MG/2.5ML nebule IH SCH ×4 (02:40→19:44)
[2017-06-22] MEDS ORDERED: cloNIDine 0.1 mg tablet PO ONE (03:25)
[2017-06-22 06:13] LABS: BASOPHILS % (AUTO) 0 % (0-1); EOSINOPHILS # (AUTO) 0.3 X10'3 (0-0.9); EOSINOPHILS % (AUTO) 2.2 % (0-6); HEMATOCRIT 24.6 % (35.0-45.0); HEMOGLOBIN 8.3 g/dl (12.0-16.0); LYMPHOCYTES # (AUTO) 0.2 X10'3 (1.1-4.8); LYMPHOCYTES % (AUTO) 1.3 % (21-51); MEAN CORPUSCULAR HEMOGLOBIN 32.3 PG (27.0-31.0); MEAN CORPUSCULAR HGB CONC 33.9 % (33.0-36.5); MEAN CORPUSCULAR VOLUME 95.3 FL (78-98); MEAN PLATELET VOLUME 7.7 FL (7.4-10.4); MONOCYTES # (AUTO) 0.6 X10'3 (0-0.9); MONOCYTES % (AUTO) 4.5 % (2-12); NEUTROPHILS # (AUTO) 12.3 X10'3 (1.8-7.7); PLATELET COUNT 230 X10'3 (140-440); RED BLOOD COUNT 2.58 X10'6 (4.20-5.60); RED CELL DISTRIBUTION WIDTH 16.3 % (11.5-14.5); WHITE BLOOD COUNT 13.3 X10'3 (4.5-11.0)
[2017-06-22 06:33] LABS: ALBUMIN 2.5 G/DL (3.4-5.0); ANION GAP 3 (8-16); BLOOD UREA NITROGEN 37 MG/DL (7-18); BUN/CREATININE RATIO 38.5 (6.6-38.0); CALCIUM 7.9 MG/DL (8.5-10.1); CHLORIDE 103 MMOL/L (99-107); CREATININE 0.96 MG/DL (0.40-0.90); GLUCOSE 139 MG/DL (70-104); MAGNESIUM 2.2 MG/DL (1.5-2.4); POTASSIUM 5.4 MMOL/L (3.5-5.1); SODIUM 139 MMOL/L (135-145); TOTAL CARBON DIOXIDE 32.8 MMOL/L (24-32); eGFR 55 ML/MIN
[2017-06-22 06:47] LABS: RHEUM FACTOR QUAL REFLEX TITER NEGATIVE (Neg)
[2017-06-22] MEDS: levoTHYROXINE 25mcg tablet PO SCH (08:09)
[2017-06-22] MEDS: lactobacillus rhamnosus 10,000 MMU CELLS/CAPSULE PO SCH ×2 (08:12→18:01)
[2017-06-22] MEDS: carVEDilol 3.125mg tablet PO SCH ×2 (08:16→21:04)
[2017-06-22] MEDS: Protein Shake (high protein) 240ml (8oz) cup PO SCH ×3 (08:17→18:03)
[2017-06-22] MEDS: pantoprazole 40mg Tablet.DR PO SCH ×2 (08:17→21:05)
[2017-06-22] MEDS: atorvastatin 20mg tablet PO SCH (08:17)
[2017-06-22] MEDS: multivitamins, therapeutics tablet PO SCH (08:17)
[2017-06-22] MEDS: hydrALAZINE 20mg/ml inj. IV PRN (23:31)
[2017-06-23 02:00] VITALS: BP 162/53
[2017-06-23] MEDS: ipratropium 0.5 MG/2.5ML nebule IH SCH ×4 (02:33→20:59)
[2017-06-23] MEDS: methylPREDNISolone sod succ/PF 40mg inj. IV SCH ×4 (02:37→21:18)
[2017-06-23 06:00] VITALS: BP 180/65
[2017-06-23] MEDS: cloNIDine 0.1 mg tablet PO SCH ×3 (07:20→21:33)
[2017-06-23] MEDS: levoTHYROXINE 25mcg tablet PO SCH (07:20)
[2017-06-23] MEDS: lactobacillus rhamnosus 10,000 MMU CELLS/CAPSULE PO SCH ×2 (07:20→17:32)
[2017-06-23] MEDS: atorvastatin 20mg tablet PO SCH (07:21)
[2017-06-23] MEDS: multivitamins, therapeutics tablet PO SCH (07:21)
[2017-06-23] MEDS: pantoprazole 40mg Tablet.DR PO SCH ×2 (07:21→21:18)
[2017-06-23] MEDS: carVEDilol 3.125mg tablet PO SCH ×2 (07:21→21:18)
[2017-06-23] MEDS: Protein Shake (high protein) 240ml (8oz) cup PO SCH ×3 (08:00→18:00)
[2017-06-23 11:00] VITALS: BP 141/58
[2017-06-23] MEDS ORDERED: sodium polystyrene sulfonate 15gm/60ml oral suspension PO ONE (12:10)
[2017-06-23 15:00] VITALS: BP 137/69
[2017-06-23 19:00] VITALS: BP 163/78
[2017-06-23 19:14] LABS: ANTI-DSDNA ANTIBODIES <1 IU/mL (0-9)
[2017-06-23 23:00] VITALS: BP 124/102
[2017-06-24] MEDS: methylPREDNISolone sod succ/PF 40mg inj. IV SCH ×2 (01:49→07:24)
[2017-06-24 02:30] VITALS: BP 211/78
[2017-06-24] MEDS: hydrALAZINE 20mg/ml inj. IV PRN (02:30)
[2017-06-24 03:00] VITALS: BP 158/69
[2017-06-24] MEDS: ipratropium 0.5 MG/2.5ML nebule IH SCH ×2 (03:52→07:55)
[2017-06-24 05:53] VITALS: BP 178/70
[2017-06-24 06:00] VITALS: BP 186/73
[2017-06-24 06:50] LABS: POTASSIUM 4.6 MMOL/L (3.5-5.1)
[2017-06-24] MEDS: atorvastatin 20mg tablet PO SCH (07:24)
[2017-06-24] MEDS: levoTHYROXINE 25mcg tablet PO SCH (07:24)
[2017-06-24] MEDS: lactobacillus rhamnosus 10,000 MMU CELLS/CAPSULE PO SCH (07:24)
[2017-06-24] MEDS: multivitamins, therapeutics tablet PO SCH (07:24)
[2017-06-24] MEDS: pantoprazole 40mg Tablet.DR PO SCH (07:24)
[2017-06-24] MEDS: cloNIDine 0.1 mg tablet PO SCH (07:24)
[2017-06-24] MEDS: carVEDilol 3.125mg tablet PO SCH (07:25)
[2017-06-24] MEDS: Protein Shake (high protein) 240ml (8oz) cup PO SCH (08:00)
[2017-06-24 08:42] LABS: BASOPHILS % (AUTO) 0 % (0-1); EOSINOPHILS % (AUTO) 0 % (0-6); HEMATOCRIT 25.8 % (35.0-45.0); HEMOGLOBIN 8.7 g/dl (12.0-16.0); LYMPHOCYTES # (AUTO) 0.2 X10'3 (1.1-4.8); LYMPHOCYTES % (AUTO) 1.3 % (21-51); MEAN CORPUSCULAR HEMOGLOBIN 32.2 PG (27.0-31.0); MEAN CORPUSCULAR HGB CONC 33.9 % (33.0-36.5); MEAN CORPUSCULAR VOLUME 95.1 FL (78-98); MEAN PLATELET VOLUME 8.1 FL (7.4-10.4); MONOCYTES # (AUTO) 0.5 X10'3 (0-0.9); MONOCYTES % (AUTO) 2.9 % (2-12); NEUTROPHILS # (AUTO) 15.9 X10'3 (1.8-7.7); NEUTROPHILS % (AUTO) 95.8 % (42-75); PLATELET COUNT 215 X10'3 (140-440); RED BLOOD COUNT 2.71 X10'6 (4.20-5.60); RED CELL DISTRIBUTION WIDTH 16.5 % (11.5-14.5); WHITE BLOOD COUNT 16.6 X10'3 (4.5-11.0)
[2017-06-24 08:50] LABS: ALBUMIN 2.7 G/DL (3.4-5.0); ANION GAP 7 (8-16); BLOOD UREA NITROGEN 42 MG/DL (7-18); BUN/CREATININE RATIO 38.5 (6.6-38.0); CHLORIDE 103 MMOL/L (99-107); CREATININE 1.09 MG/DL (0.40-0.90); GLUCOSE 133 MG/DL (70-104); SODIUM 143 MMOL/L (135-145); TOTAL CARBON DIOXIDE 33.3 MMOL/L (24-32); eGFR 48 ML/MIN
[2017-06-24 11:00] VITALS: BP 147/47
[2017-06-24 13:38] LABS: ATYPICAL PANCA <1:20 titer (Neg:<1:20); CYTOPLASMIC (C-ANCA) <1:20 titer (Neg:<1:20); PERINUCLEAR (P-ANCA) <1:20 titer (Neg:<1:20)
[2017-06-27 17:12] LABS: OCCULT BLOOD STOOL NEGATIVE (Neg)
== END 2017-06-24 13:00 | DRG 177 ==
LOC: ER 06:29 → ED HOLD 14:07 → EDBEDREQ 15:15 → PCU 3S 16:55
PROVIDERS: ADMIT Family Medicine; ATTEND Internal Medicine
PROC: 5A09457 Assistance with Respiratory Ventilation, 24-96 Consecutive Hours, Continuous Positive Airway Pressure (ICD-10-PCS; principal; 2017-06-10)
PROC: 0T9B70Z Drainage of Bladder with Drainage Device, Via Natural or Artificial Opening (ICD-10-PCS; 2017-06-10)
PROC: 30233N1 Transfusion of Nonautologous Red Blood Cells into Peripheral Vein, Percutaneous Approach (ICD-10-PCS; 2017-06-17)
PROC: B3201ZZ Computerized Tomography (CT Scan) of Thoracic Aorta using Low Osmolar Contrast (ICD-10-PCS; 2017-06-21)
DX: J69.0 Pneumonitis due to inhalation of food and vomit (principal); J96.22 Acute and chronic respiratory failure with hypercapnia; J96.21 Acute and chronic respiratory failure with hypoxia; I21.4 Non-ST elevation (NSTEMI) myocardial infarction; E87.4 Mixed disorder of acid-base balance; K57.91 Diverticulosis of intestine, part unspecified, without perforation or abscess with bleeding; N17.9 Acute kidney failure, unspecified; J44.1 Chronic obstructive pulmonary disease with (acute) exacerbation; J98.11 Atelectasis; R04.2 Hemoptysis; I69.351 Hemiplegia and hemiparesis following cerebral infarction affecting right dominant side; E66.2 Morbid (severe) obesity with alveolar hypoventilation; I48.2 Chronic atrial fibrillation; R33.9 Retention of urine, unspecified; D63.8 Anemia in other chronic diseases classified elsewhere; I27.20 Pulmonary hypertension, unspecified; E03.9 Hypothyroidism, unspecified; E78.5 Hyperlipidemia, unspecified; I11.0 Hypertensive heart disease with heart failure; I25.10 Atherosclerotic heart disease of native coronary artery without angina pectoris; I50.9 Heart failure, unspecified; I69.320 Aphasia following cerebral infarction; Z90.49 Acquired absence of other specified parts of digestive tract; Z95.0 Presence of cardiac pacemaker; Z99.81 Dependence on supplemental oxygen; Z88.1 Allergy status to other antibiotic agents; Z79.899 Other long term (current) drug therapy; Z87.891 Personal history of nicotine dependence; Z68.28 Body mass index [BMI] 28.0-28.9, adult
CPT/HCPCS: 36415; 36600; 70450; 71045; 71250; 71275; 74018; 74230; 80048; 80053; 80076; 82272; 82803; 83735; 83880; 84443; 84484; 85018; 85025; 85027; 85384; 85610; 85730; 86235; 86256; 86430; 86885; 86900; 86901; 86902; 86922; 87070; 92616; 93005; 93306; 94640; 94660; 94668; 94760; 96365; 96375; 97110; 97116; 97162; 97530; 99291; 99292; A4315; A6212; A6213; A6250; A6258; C9113; J0360; J1120; J1644; J1650; J1940; J1956; J2250; J2270; J2405; J2704; J2920; J2930; J3010; J3370; J3490; J7030; J7060; P9016; Q9967

== ENCOUNTER 2017-09-23 18:13 | Emergency (ER) | payer MEDICARE, OTHER ==
[~2017-09-23] VITALS: Ht 162.6 cm; Wt 70.0 kg
[~2017-09-23 18:13] MED LIST changes: -ENOX40SY7 SUBCUT; -rocuronium 10mg/ml inj IV ONE
[2017-09-23] MEDS ORDERED: AMLO2.5T2 PO (19:25)
[2017-09-23] MEDS ORDERED: FURO-150 PO (19:25)
[2017-09-23] MEDS ORDERED: POTA10CA44 PO (19:25)
[2017-09-23] MEDS ORDERED: SYN0.088T PO (19:25)
[2017-09-23] MEDS ORDERED: CLON-529 PO (19:25)
[2017-09-23 19:54] LABS: BASOPHILS % (AUTO) 0.1 % (0-1); EOSINOPHILS # (AUTO) 1.3 X10'3 (0-0.9); EOSINOPHILS % (AUTO) 18.1 % (0-6); HEMATOCRIT 27.7 % (35.0-45.0); HEMOGLOBIN 8.9 g/dl (12.0-16.0); LYMPHOCYTES # (AUTO) 0.8 X10'3 (1.1-4.8); LYMPHOCYTES % (AUTO) 11.4 % (21-51); MEAN CORPUSCULAR HEMOGLOBIN 30.9 PG (27.0-31.0); MEAN CORPUSCULAR HGB CONC 32.1 % (33.0-36.5); MEAN CORPUSCULAR VOLUME 96.4 FL (78-98); MEAN PLATELET VOLUME 7.1 FL (7.4-10.4); MONOCYTES # (AUTO) 0.8 X10'3 (0-0.9); MONOCYTES % (AUTO) 11.8 % (2-12); NEUTROPHILS # (AUTO) 4.1 X10'3 (1.8-7.7); NEUTROPHILS % (AUTO) 58.6 % (42-75); PLATELET COUNT 293 X10'3 (140-440); RED BLOOD COUNT 2.88 X10'6 (4.20-5.60); RED CELL DISTRIBUTION WIDTH 15.6 % (11.5-14.5); WHITE BLOOD COUNT 6.9 X10'3 (4.5-11.0)
[2017-09-23 20:13] LABS: ALANINE AMINOTRANSFERASE 14 U/L (12-78); ALBUMIN 2.9 G/DL (3.4-5.0); ALBUMIN/GLOBULIN RATIO 0.7 (1.1-1.5); ALKALINE PHOSPHATASE 90 IU/L (46-116); ANION GAP 4 (8-16); ASPARTATE AMINO TRANSFERASE 12 U/L (10-37); BILIRUBIN,TOTAL 0.3 MG/DL (0.1-1.0); BLOOD UREA NITROGEN 35 MG/DL (7-18); BUN/CREATININE RATIO 26.7 (6.6-38.0); CALCIUM 9.2 MG/DL (8.5-10.1); CHLORIDE 101 MMOL/L (99-107); CREATININE 1.31 MG/DL (0.40-0.90); GLUCOSE 108 MG/DL (70-104); POTASSIUM 4.2 MMOL/L (3.5-5.1); SODIUM 146 MMOL/L (135-145); TOTAL PROTEIN 7.3 G/DL (6.4-8.2); eGFR 38 ML/MIN
[2017-09-23 20:21] LABS: TOTAL CARBON DIOXIDE 41.1 MMOL/L (24-32)
[2017-09-23 21:01] LABS: ABG BASE EXCESS 11.6 mmol/L (-2.0-3.0); ABG HCO3 38.3 mmol/L (22.0-26.0); ABG OXYGEN SATURATION 89.8 % (95-98); ABG PCO2 (T) 63.2 mmHg (32.0-45.0); ABG PH (T) 7.398 (7.350-7.450); ABG PO2 (T) 59.3 mmHg (83-108); ALLEN'S TEST Positive; FCOHb 0.7 % (0.5-1.5); FLOW 2 L/min; FMetHb 0.3 % (0.3-1.12); FO2Hb 88.9 % (94-100); PATIENT TEMPERATURE 36.5; TOTAL HEMOGLOBIN 9.1 G/dl (12.0-16.0)
[2017-09-23 22:19] VITALS: BP 149/65
== END 2017-09-23 22:21 | disposition home or self-care (01) ==
LOC: ER 18:13
DX: R06.02 Shortness of breath (principal); I48.91 Unspecified atrial fibrillation; I25.10 Atherosclerotic heart disease of native coronary artery without angina pectoris; I10 Essential (primary) hypertension; J44.9 Chronic obstructive pulmonary disease, unspecified; Z88.1 Allergy status to other antibiotic agents
CPT/HCPCS: 36415; 36600; 71045; 80053; 82803; 83605; 83880; 84439; 84443; 84484; 85018; 85025; 93005; 99285

== ENCOUNTER 2017-09-24 09:23 | Emergency (ER) | payer MEDICARE, OTHER ==
[~2017-09-24] VITALS: Ht 157.5 cm; Wt 70.0 kg
[~2017-09-24 09:23] MED LIST changes: +FURO-150 PO; +POTA10CA44 PO
[2017-09-24 09:30] VITALS: BP 136/80
[2017-09-24] MEDS ORDERED: normal saline 1000ML IV soln IVB ONE (09:40)
[2017-09-24 10:03] LABS: BASOPHILS % (AUTO) 0.1 % (0-1); EOSINOPHILS # (AUTO) 1.4 X10'3 (0-0.9); HEMATOCRIT 28.8 % (35.0-45.0); HEMOGLOBIN 9.3 g/dl (12.0-16.0); LYMPHOCYTES # (AUTO) 0.8 X10'3 (1.1-4.8); LYMPHOCYTES % (AUTO) 9.1 % (21-51); MEAN CORPUSCULAR HEMOGLOBIN 31.1 PG (27.0-31.0); MEAN CORPUSCULAR HGB CONC 32.3 % (33.0-36.5); MEAN CORPUSCULAR VOLUME 96.2 FL (78-98); MEAN PLATELET VOLUME 6.9 FL (7.4-10.4); MONOCYTES # (AUTO) 0.8 X10'3 (0-0.9); MONOCYTES % (AUTO) 8.7 % (2-12); NEUTROPHILS # (AUTO) 5.9 X10'3 (1.8-7.7); NEUTROPHILS % (AUTO) 66.1 % (42-75); PLATELET COUNT 328 X10'3 (140-440); RED CELL DISTRIBUTION WIDTH 16.2 % (11.5-14.5)
[2017-09-24 10:12] LABS: INR 1.1 INR; PARTIAL THROMBOPLASTIN TIME 39 SECONDS (22-32)
[2017-09-24 10:16] LABS: ABG BASE EXCESS 12.7 mmol/L (-2.0-3.0); ABG HCO3 38.2 mmol/L (22.0-26.0); ABG OXYGEN SATURATION 90.3 % (95-98); ABG PH (T) 7.459 (7.350-7.450); ABG PO2 (T) 60.5 mmHg (83-108); ALLEN'S TEST Positive; FCOHb 0.9 % (0.5-1.5); FMetHb 0.1 % (0.3-1.12); FO2Hb 89.4 % (94-100); TOTAL HEMOGLOBIN 9.3 G/dl (12.0-16.0)
[2017-09-24 10:25] LABS: ALANINE AMINOTRANSFERASE 13 U/L (12-78); ALBUMIN 2.9 G/DL (3.4-5.0); ALBUMIN/GLOBULIN RATIO 0.6 (1.1-1.5); ALKALINE PHOSPHATASE 91 IU/L (46-116); ANION GAP 3 (8-16); ASPARTATE AMINO TRANSFERASE 15 U/L (10-37); BILIRUBIN,TOTAL 0.3 MG/DL (0.1-1.0); BLOOD UREA NITROGEN 34 MG/DL (7-18); BUN/CREATININE RATIO 24.3 (6.6-38.0); CHLORIDE 99 MMOL/L (99-107); GLUCOSE 97 MG/DL (70-104); POTASSIUM 4.7 MMOL/L (3.5-5.1); SODIUM 143 MMOL/L (135-145); TOTAL PROTEIN 7.4 G/DL (6.4-8.2); eGFR 36 ML/MIN
[2017-09-24 10:28] LABS: TOTAL CARBON DIOXIDE 41.1 MMOL/L (24-32)
[2017-09-24 11:15] LABS: CLARITY,URINE CLEAR (Clear); COLOR,URINE YELLOW (Yellow); GLUCOSE, URINE NEGATIVE (Neg); KETONES,URINE NEGATIVE (Neg); LEUKOCYTE ESTERASE ,URINE TRACE (Neg); NITRITES, URINE NEGATIVE (Neg); OCCULT BLOOD,URINE NEGATIVE (Neg); PH,URINE 6.5 (4.8-8.0); PROTEIN,URINE NEGATIVE (Neg)
[2017-09-24 11:21] LABS: UA COLLECTION TYPE CLN CATCH MIDSTREAM
[2017-09-24 11:22] LABS: BACTERIA,URINE FEW /HPF (Neg); MUCUS STRANDS NONE SEEN /LPF (Neg); RBC,URINE NONE SEEN /HPF (0-2); RENAL CELLS, URINE FEW /HPF; SQUAMOUS EPITHELIAL CELL,UR FEW /LPF (FEW); WBC,URINE 0-4 /HPF (0-4)
== END 2017-09-24 12:17 | disposition home or self-care (01) ==
LOC: ER 09:23
DX: J44.1 Chronic obstructive pulmonary disease with (acute) exacerbation (principal); I48.91 Unspecified atrial fibrillation; I25.10 Atherosclerotic heart disease of native coronary artery without angina pectoris; E78.00 Pure hypercholesterolemia, unspecified; I10 Essential (primary) hypertension; Z90.49 Acquired absence of other specified parts of digestive tract; Z95.0 Presence of cardiac pacemaker; Z86.73 Personal history of transient ischemic attack (TIA), and cerebral infarction without residual deficits; Z79.899 Other long term (current) drug therapy
CPT/HCPCS: 36415; 36600; 80053; 81001; 82803; 83880; 84443; 84484; 85018; 85025; 85610; 85730; 87088; 93005; 99285; J7030

== ENCOUNTER 2018-09-08 19:03 | Inpatient (IN) | payer MEDICARE, OTHER | END 2018-09-13 14:22 | disposition home or self-care (01) | LOC: ER 19:03 → PCU 3S 09-09 02:39 | PROC: 0JWT0PZ Revision of Cardiac Rhythm Related Device in Trunk Subcutaneous Tissue and Fascia, Open Approach (ICD-10-PCS; principal; ~2018-09-08) | PROC: 02WA3MZ Revision of Cardiac Lead in Heart, Percutaneous Approach (ICD-10-PCS; ~2018-09-08) | DX: T82.111A Breakdown (mechanical) of cardiac pulse generator (battery), initial encounter (principal); J44.1 Chronic obstructive pulmonary disease with (acute) exacerbation; N17.9 Acute kidney failure, unspecified; R00.1 Bradycardia, unspecified; N18.9 Chronic kidney disease, unspecified; I12.9 Hypertensive chronic kidney disease with stage 1 through stage 4 chronic kidney disease, or unspecified chronic kidney disease ==